=== PATIENT | female | born 1970 | race Caucasian/White ===

== ENCOUNTER 2024-04-22 13:07 | Inpatient (IN) | payer OTHER ==
[2024-04-22 16:41] LABS: Albumin 4.2 g/dL (3.4-5.0); Albumin/Globulin Ratio 1.6 (1.1-1.8); Anion Gap 11.7 mEq/L (5.0-15.0); Bilirubin Total 0.5 mg/dL (0.2-1.0); Globulin 2.6 g/dL (2.3-3.5); Magnesium 2.4 mg/dL (1.6-2.4); Potassium 3.7 mEq/L (3.5-5.1); Protein, Total 6.8 g/dL (6.4-8.2)
[2024-04-22] MEDS ORDERED: NA CHLORIDE 0.9% 1,000 ML ONE (16:42)
[2024-04-22 16:58] LABS: Absolute Eosinophils 0.2 K/uL (0-0.5); Absolute Lymphocytes (CBC) 2.4 K/uL (0.7-4.9); Absolute Neutrophil 8.8 K/uL (1.8-8.0); Basophils % 0.3 % (0-1.3); Eosinophils % 1.5 % (0-4.4); Hematocrit 38.9 % (36.0-45.0); Hemoglobin 12.1 g/dL (12.0-15.0); Lymphocytes % 19.1 % (15.3-44.8); MCH 26.6 pg (27.0-35.0); MCV 85.6 fL (80-100); MPV 9.4 fL (7.6-11.3); Monocytes % 7.8 % (3.3-12.3); Neutrophils % 71.3 % (41.7-73.7); Platelets 181 thou/uL (152-406); RBC Red Blood Cell Count 4.55 M/uL (3.86-4.86); Red Cell Distribution Width 18.2 % (12.1-15.2)
--- NOTE | 2024-04-22 17:38 | EDPHYS ---
Physician Documentation [facility] Name: Racheal Austin Age: 53 yrs Sex: Female : 1970 Arrival Date: 04/22/2024 Time: 13:07 Bed 13 Private MD: ED Physician Ernie Sargent HPI: 04/22 13:51 This 53 yrs old Female presents to ER via Ambulatory with complaints of possible [facility] lithium toxicity. 13:51 53-year-old female with a past medical history of bipolar disorder and diabetes jh7 presents to the ER for possible lithium toxicity. She reports tremors for the past couple of weeks, but her states that he has noticed a cognitive decline over this weekend. Patient reports she has experienced a small amount of diarrhea but that she feels fine. Reports that her PCP stated that she needed to stop taking her evening dose, but she denies doubling up on her meds, or any new medication.. 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 - Infectious Disease History:: Denies. - Social history:: Smoking status: Patient reports the use of cigarette tobacco products. ROS: 13:51 Constitutional: Per HPI 7 Exam: 13:51 Head/Face: Normocephalic, atraumatic. Eyes: Pupils equal round and reactive to light, 7 extra-ocular motions intact. Lids and lashes normal. Conjunctiva and sclera are non-icteric and not injected. Cornea within normal limits. Periorbital areas with no swelling, redness, or edema. Neck: Trachea midline, no thyromegaly or masses palpated, and no cervical lymphadenopathy. Supple, full range of motion without nuchal rigidity, or vertebral point tenderness. No Meningismus. Cardiovascular: Regular rate and rhythm with a normal S1 and S2. No gallops, murmurs, or rubs. Normal PMI, no JVD. No pulse deficits. Respiratory: Lungs have equal breath sounds bilaterally, clear to auscultation and percussion. No rales, rhonchi or wheezes noted. No increased work of breathing, no retractions or nasal flaring. Abdomen/GI: Soft, non-tender, with normal bowel sounds. No distension or tympany. No guarding or rebound. No evidence of tenderness throughout. Back: No spinal tenderness. No costovertebral tenderness. Full range of motion. 13:51 Skin: Warm, dry with normal turgor. Normal color with no rashes, no lesions, and no evidence of cellulitis. MS/ Extremity: Pulses equal, no cyanosis. Neurovascular intact. Full, normal range of motion. 13:51 Constitutional: The patient appears alert, awake, restless, 13:51 Neuro: Orientation: to person, place, time \\T\\ situation. Mentation: is normal, Motor: is normal, Sensation: is normal, 13:51 Psych: Behavior/mood is Agitated. Affect is animated, 17:58 Neuro: Orientation: Unable to remember her medications and frequently uses [facility] inappropriate words throughout discussion such as " I take formaldehyde for my medication", slurred speech, pt is agitated, Vital Signs: 13:51 BP 133 / 67; Pulse 73; Resp 18; Temp 98.2; Pulse Ox 91% ; Weight 95.25 kg; Height 5 ft. as6 5 in. ; Pain 0/10; 16:45 BP 131 / 71; Pulse 75; Resp 16; Pulse Ox 98% on R/A; nj1 18:01 BP 141 / 77; Pulse 73; Resp 16; Pulse Ox 99% ; nj1 18:50 BP 155 / 84; Pulse 77; Resp 16; Temp 98.2(O); Pulse Ox 99% on R/A; nj1 13:51 Body Mass Index 34.95 (95.25 kg, 165.1 cm) as6 13:51 Pain Scale: Adult as6 MDM: 13:35 Patient medically screened. 7 15:00 ED course: After receiving critical lithium level, the patient had left the room. I 7 called the patient who stated that she was tired of waiting so long. Strongly advised her to return to the ER for admission due to critical lab. The patient reports her will bring her back to the ER.. 17:35 Differential diagnosis: [place] toxicity, alcohol intoxication, tremors, accidental jh7 overdose. Data reviewed: vital signs, nurses notes, lab test result(s), EKG. Consideration of Admission/Observation Patient was admitted/placed on observation. Management of patient was discussed with the following: Hospitalist: Mago Ramos, nurse practitioner for Dr. Smith. I considered the following discharge prescriptions or medication management in the emergency department Medications were administered in the Emergency Department. See MAR. Historians other than the Patient: Spouse/Significant Other: alberto, . Care significantly affected by the following chronic conditions: Diabetes, Bipolar disorder. Counseling: I had a detailed discussion with the patient and/or guardian regarding the historical points, exam findings, and any diagnostic results supporting the discharge/admit diagnosis, the need for further work-up and treatment in the hospital. ED course: Mago spoke with Dr. Yin, nephrology, who advised admission to the ICU. Will rehydrate the patient and monitor her lithium level. If the patient's symptoms worsen, emergent dialysis may be indicated.. 04/22 13:51 Order name: [place]; Complete Time: 15:49 [facility] 04/22 15:48 Order name: CBC with Diff; Complete Time: 17:14 [facility] 04/22 15:48 Order name: CMP; Complete Time: 16:58 [facility] 04/22 15:49 Order name: Magnesium; Complete Time: 16:58 [facility] 04/22 16:28 Order name: UDS [facility] 04/22 16:28 Order name: ETOH Level; Complete Time: 17:28 [facility] 04/22 16:28 Order name: Tylenol Level [facility] 04/22 16:28 Order name: Salicylate; Complete Time: 17:28 [facility] 04/22 17:58 Order name: CBC with Automated Diff [facility] 04/22 17:58 Order name: T4 Free [facility] 04/22 17:58 Order name: Thyroid Stimulating Hormone [facility] 04/22 17:58 Order name: Basic Metabolic Panel [facility] 04/22 17:58 Order name: Basic Metabolic Panel [facility] 04/22 17:58 Order name: Basic Metabolic Panel [facility] 04/22 17:58 Order name: Lipid Profile [facility] 04/22 17:58 Order name: Lipid Profile [facility] 04/22 17:58 Order name: [place] [facility] 04/22 17:58 Order name: [place] [facility] 04/22 18:02 Order name: CBC with Automated Diff [facility] 04/22 18:02 Order name: CBC with Automated Diff [facility] 04/22 18:02 Order name: CBC with Automated Diff [facility] 04/22 18:02 Order name: CBC with Automated Diff [facility] 04/22 18:02 Order name: Comprehensive Metabolic Panel [facility] 04/22 18:02 Order name: Comprehensive Metabolic Panel [facility] 04/22 18:02 Order name: Comprehensive Metabolic Panel [facility] 04/22 18:02 Order name: Comprehensive Metabolic Panel [facility] 04/22 18:02 Order name: Magnesium [facility] 04/22 18:02 Order name: Magnesium EDMS 04/22 18:02 Order name: Magnesium EDMS 04/22 18:02 Order name: Magnesium [facility] 04/22 18:02 Order name: Phosphorus [facility] 04/22 18:02 Order name: Phosphorus EDMS 04/22 18:02 Order name: Phosphorus EDMS 04/22 18:02 Order name: Phosphorus EDMS 04/22 18:03 Order name: [place] EDMS 04/22 19:26 Order name: T4 Free [facility] 04/22 19:26 Order name: Thyroid Stimulating Hormone [facility] 04/22 17:58 Order name: CONS Physician Consult [facility] 04/22 16:28 Order name: EKG - Nurse/Tech; Complete Time: 17:25 jh7 EC:20 Rate is 76 beats/min. Rhythm is regular. QRS Cla[place] is Normal. AK interval is normal at jh7 180 msec. QRS interval is normal at 96 msec. QT interval is prolonged at 432 msec. No Q waves. T waves are Normal. No ST changes noted. Clinical impression: Normal sinus rhythm with prolonged QT. Administered Medications: 16:45 Drug: NS 0.9% IV 1000 ml IV at 1 bolus Per protocol; 1000 mL bolus Route: IV; Rate: 1 nj1 bolus; Site: right forearm; 18:00 Follow up: Response: No adverse reaction; IV Status: Completed infusion; IV Intake: nj1 1000ml 18:00 Drug: NS 0.9% IV 1000 ml IV at 1 bolus Per protocol; 1000 mL bolus Route: IV; Rate: 1 nj1 bolus; Site: right forearm; 18:00 Drug: NS 0.9% IV 1000 ml IV at 1 bolus Per protocol; 1000 mL bolus Route: IV; Rate: 1 nj1 bolus; Site: right forearm; Disposition Summary: 04/22/24 17:37 Hospitalization Ordered Notes: Hospitalization Status: Inpatient Admission [facility] Provider: Rima Sheikh [facility] Location: Intensive Care Unit [facility] Condition: Fair [facility] Problem: new [facility] Symptoms: have worsened [facility] Bed/Room Type: Standard [facility] Room Assignment: 3-(04/22/24 18:03) Diagnosis - [place] toxicity [facility] - Dehydration [facility] Forms: - Medication Reconciliation Form [facility] - SBAR form [facility] - Leadership Thank You Letter [facility] Signatures: Dispatcher [employer] EDMS Mago Ramos FNP-C ENTREPRENEURSHIP PROGRAM DIRECTOR-Maria Del Rosariow Paola Verduzco Ashby, RN RN as6 Greer Thomason FNP ENTREPRENEURSHIP PROGRAM DIRECTOR 7 Cayla Rodríguez, RN RN nj1 Corrections: (The following items were deleted from the chart) 17:59 13:51 Psych: Behavior/mood is Agitated. Affect is calm, [place] [id number] 18:01 17:58 Comprehensive Metabolic Panel ordered. EDMS EDMS 18:02 17:58 Magnesium ordered. EDMS EDMS 18:02 17:58 Phosphorus ordered. EDMS EDMS 18:03 17:37 [facility]
--- NOTE | 2024-04-22 17:38 | ER ---
Nurse's Notes [facility] Name: Racheal Austin Age: 53 yrs Sex: Female : 1970 Arrival Date: 04/22/2024 Time: 13:07 Bed 13 Private MD: Diagnosis: [place] toxicity;Dehydration Presentation: 04/22 13:51 Chief complaint: Patient states: pt states she needs her lithium levels checked. as6 Coronavirus screen: At this time, the client does not indicate any symptoms associated with coronavirus-19. Ebola Screen: No symptoms or risks identified at this time. Initial Sepsis Screen: Does the patient meet any 2 criteria? No. Patient's initial sepsis screen is negative. Does the patient have a suspected source of infection? No. Patient's initial sepsis screen is negative. Risk Assessment: Do you want to hurt yourself or someone else? Patient reports no desire to harm self or others. Onset of symptoms was April 22, 2024. 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 - Infectious Disease History:: Denies. - Social history:: Smoking status: Patient reports the use of cigarette tobacco products. Screenin:34 [facility] ED Fall Risk Assessment (Adult) History of falling in the last 3 months, nj1 including since admission No falls in past 3 months (0 pts) Confusion or Disorientation No (0 pts) Intoxicated or Sedated No (0 pts) Impaired Gait No (0 pts) Mobility Assist Device Used No (0 pt) Altered Elimination No (0 pt) Score/Fall Risk Level 0 - 2 = Low Risk Oriented to surroundings, Maintained a safe environment, Hourly rounding (assess needs \\T\\ fall precautionary measures) done. Abuse screen: Denies threats or abuse. Denies injuries from another. Nutritional screening: No deficits noted. Tuberculosis screening: No symptoms or risk factors identified. Assessment: 14:20 General: Appears in no apparent distress. comfortable, Behavior is calm, cooperative, nj1 appropriate for age. 14:20 Pain: Denies pain. Neuro: Level of Consciousness is awake, alert, obeys commands, nj1 Oriented to person, place, time, situation. Neuro: Reports Tremors, none noted at time of assessment.. Cardiovascular: Patient's skin is warm and dry. Respiratory: Airway is patent Respiratory effort is even, unlabored. GI: Reports diarrhea. 15:30 Reassessment: Not in room at this time. nj1 16:08 Reassessment: Pt to come back to ED per Greer Waller SURGICAL AIDE statement. Pt had left earlier [facility] without notice. Charge nurse aware. 16:40 Reassessment: Patient appears in no apparent distress at this time. Patient and/or nj1 family updated on plan of care and expected duration. Pain level reassessed. Patient is alert, oriented x 3, equal unlabored respirations, skin warm/dry/pink. Pt back in room. Patient and patients refused monitor on due to "beeping". This RN attempts education, do not want monitor on, this RN to come back and turn monitor on when getting vital signs. 16:40 Neuro: Level of Consciousness is awake, obeys commands, Drowsy. Oriented to person, nj1 place, situation. 18:01 Reassessment: Patient appears in no apparent distress at this time. Patient and/or nj1 family updated on plan of care and expected duration. Pain level reassessed. Patient is alert, oriented x 3, equal unlabored respirations, skin warm/dry/pink. Hospitalist in room with patient. 18:12 Reassessment: Unsuccessful attempt to call report at this time. Nurses unavailable, nj they will call after shift change for report. 18:50 Reassessment: Patient appears in no apparent distress at this time. Patient and/or nj1 family updated on plan of care and expected duration. Pain level reassessed. Patient is alert, oriented x 3, equal unlabored respirations, skin warm/dry/pink. 19:09 Reassessment: Patient appears in no apparent distress at this time. Patient and/or jb4 family updated on plan of care and expected duration. Pain level reassessed. Patient is alert, oriented x 3, equal unlabored respirations, skin warm/dry/pink. Vital Signs: 13:51 BP 133 / 67; Pulse 73; Resp 18; Temp 98.2; Pulse Ox 91% ; Weight 95.25 kg; Height 5 ft. as6 5 in. ; Pain 0/10; 16:45 BP 131 / 71; Pulse 75; Resp 16; Pulse Ox 98% on R/A; nj1 18:01 BP 141 / 77; Pulse 73; Resp 16; Pulse Ox 99% ; nj1 18:50 BP 155 / 84; Pulse 77; Resp 16; Temp 98.2(O); Pulse Ox 99% on R/A; nj1 13:51 Body Mass Index 34.95 (95.25 kg, 165.1 cm) as6 13:51 Pain Scale: Adult as6 ED Course: 13:16 Patient arrived in ED. ts1 13:35 [facility] Thomason FNP [facility]. jh7 13:35 Ernie Sargent MD is Attending Physician. jh7 13:52 Triage completed. as6 13:53 Arm band placed on. as6 14:20 Patient has correct armband on for positive identification. Bed in low position. Call nj1 light in reach. Adult w/ patient. 14:20 Provided Education on: call light, fall precautions. nj1 14:22 Initial lab(s) drawn, by in, sent to lab. nj1 14:29 Cayla Rodríguez, MICHOACANO is Primary Nurse. nj1 16:45 Inserted saline lock: 20 gauge in right forearm, using aseptic technique. Blood nj1 collected. 17:25 EKG done, by ED staff, reviewed by Greer SCHAEFER. 10 17:36 Rima Sheikh MD is Hospitalizing Provider. [facility] 19:12 Report given to Angel RÍOS. nj1 19:31 No provider procedures requiring assistance completed. Patient admitted, IV remains in nj1 place. Administered Medications: 16:45 Drug: NS 0.9% IV 1000 ml IV at 1 bolus Per protocol; 1000 mL bolus Route: IV; Rate: 1 nj1 bolus; Site: right forearm; 18:00 Follow up: Response: No adverse reaction; IV Status: Completed infusion; IV Intake: nj1 1000ml 18:00 Drug: NS 0.9% IV 1000 ml IV at 1 bolus Per protocol; 1000 mL bolus Route: IV; Rate: 1 nj1 bolus; Site: right forearm; 18:00 Drug: NS 0.9% IV 1000 ml IV at 1 bolus Per protocol; 1000 mL bolus Route: IV; Rate: 1 nj1 bolus; Site: right forearm; Medication: 19:33 VIS not applicable for this client. nj1 Intake: 18:00 IV: 1000ml; Total: 1000ml. ut1 Outcome: 17:37 Decision to Hospitalize by Provider. chris 19:32 Admitted to ICU accompanied by nurse, family with patient, room 3, Report called to miryam Barfiled RN 19:32 Condition: stable 19:32 Instructed on the need for admit, 19:34 Patient left the ED. [facility] Signatures: King Banks, RN RN jb4 Ellis Rojas, RN RN as6 Greer Thomason, EXPANSION JOINT BUILDER EXPANSION JOINT BUILDER 7 Cayla Rodríguez RN RN nj1 Vanesa Chapa, MIA PAS ts1 Sharmaine Moore, RN RN cm10 Corrections: (The following items were deleted from the chart) 16:58 16:57 BP 131 / 71; Pulse 75bpm; Resp 16bpm; Pulse Ox 98% RA; nj1 nj 18:38 16:40 Reassessment: Patient appears in no apparent distress at this time. Patient nj1 and/or family updated on plan of care and expected duration. Pain level reassessed. Patient is alert, oriented x 3, equal unlabored respirations, skin warm/dry/pink. Pt back in room [facility]
--- NOTE | 2024-04-22 17:47 | P.HP ---
Certification for Inpatient Patient admitted to: Inpatient With expected LOS: >2 Midnights Patient will require the following post-hospital care: None Practitioner: I am a practitioner with admitting privileges, knowledge of patient current condition, hospital course, and medical plan of care. Services: Services provided to patient in accordance with Admission requirements found in Title 42 Section 412.3 of the Code of Federal Regulations Patient History Date of Service: 04/22/24 Reason for admission: [place] toxicity Home medications list reviewed: Yes ([place] and [place]) Physical Examination - Studies Laboratory Data (last 24 hrs) 04/22/24 04/22/24 16:45 14:22 WBC 12.40 H Hgb 12.1 Hct 38.9 Plt Count 181 Sodium 131 L Potassium 3.7 BUN 34 H Creatinine 1.69 H Glucose 138 H Magnesium 2.4 Total Bilirubin 0.5 AST 18 ALT 25 Alkaline Phosphatase 169 H Assessment and Plan - Advance Directives Does patient have a Living Will: No Does patient have a Durable POA for Healthcare: No
[2024-04-22] MEDS ORDERED: NA CHLORIDE 0.9% 2,000 ML ONE (17:56)
[2024-04-22] MEDS ORDERED: VANCOMYCIN 1 GM/VIAL ONE (19:11)
[2024-04-22] MEDS ORDERED: NA CHLORIDE 0.9% 250 ML ONE (19:11)
[2024-04-22] MEDS ORDERED: MORPHINE 2 MG/ML SYR IV PRN (19:21)
[2024-04-22] MEDS ORDERED: ONDANSETRON 4 MG/2 ML VIAL IV PRN (19:21)
[2024-04-22] MEDS ORDERED: ALBUTEROL 2.5 MG/3 ML NEB SOL NEB PRN (19:21)
[2024-04-22] MEDS ORDERED: HYDRALAZINE HCL 20 MG/ML VIAL IV PRN (19:24)
[2024-04-22] MEDS ORDERED: ACETAMINOPHEN 325 MG TABLET PO PRN (19:24)
--- NOTE | 2024-04-22 19:31 | P.HP ---
Certification for Inpatient Patient admitted to: Observation With expected LOS: <2 Midnights Patient will require the following post-hospital care: None Practitioner: I am a practitioner with admitting privileges, knowledge of patient current condition, hospital course, and medical plan of care. Services: Services provided to patient in accordance with Admission requirements found in Title 42 Section 412.3 of the Code of Federal Regulations Patient History Date of Service: 04/22/24 Reason for admission: Weakness and tremulousness History of Present Illness: 53-year-old female with history of bipolar disorder on lithium since the last 10 years with no recent dose adjustment, history of hypertension, diabetes mellitus type 2 currently on metformin and Mounjaro, recurrent Mounjaro induced vomiting last episode was earlier today; presented to the hospital because of increasing weakness and new onset noted tremors with lethargy. Patient states she had a bout of diarrhea 1 week ago but has since resolved. She denies any fever or chills she denies any headache or dizziness. She states she has been having intermittent vomiting since started on Mounjaro. She states she has a significant weight loss of over 20 pounds. On arrival in the ED vital signs were stable, laboratory workup shows serum sodium of 131 with lithium level of greater than 3.0 potassium was 3.7 creatinine elevated at 1.69. Patient denies prior kidney injury. She denies any prior history of lithium toxicity. She denies any suicidal ideation. Initially on arrival in the ED patient has wanted to leave AMA but now more cooperative and conversant. She denies any other symptoms now. She is ready to do what ever needed to get her lithium level corrected. Allergies No Known Allergies Allergy (Unverified 04/22/24 18:39) - Past Medical/Surgical History -: Hypertension -: Diabetes mellitus -: Obesity -: Cholecystectomy - Family History Family History: Reviewed- Non-Contributory - Social History Smoking Status: Heavy Tobacco smoker (>10 cigarettes/day) Counseled patient to stop smoking for: more than 10 minutes Smoking therapy provided: Yes Patient receptive to therapy: Yes Alcohol use: No CD- Drugs: No Caffeine use: No Place of Residence: Home Review of Systems 10-point ROS is otherwise unremarkable General: Weakness Gastrointestinal: Nausea, Vomiting Neurological: Weakness Physical Examination - Physical Exam General: Alert, In no apparent distress, Oriented x3, Obese HEENT: Atraumatic, Normocephalic, PERRLA Neck: Supple, 2+ carotid pulse no bruit, JVD not distended Respiratory: Clear to auscultation bilaterally, Normal air movement Cardiovascular: No edema, Normal pulses, Regular rate/rhythm, Normal S1 S2 Gastrointestinal: Normal bowel sounds, Soft and benign, Non-distended, No ascites, No tenderness Musculoskeletal: No clubbing, No swelling Integumentary: No rashes, No significant lesion, No tenderness/swelling Neurological: Normal gait, Normal strength at 5/5 x4 extr, Sensation intact, Cranial nerves 3-12 intact - Studies Laboratory Data (last 24 hrs) 04/22/24 04/22/24 16:45 14:22 WBC 12.40 H Hgb 12.1 Hct 38.9 Plt Count 181 Sodium 131 L Potassium 3.7 BUN 34 H Creatinine 1.69 H Glucose 138 H Magnesium 2.4 Total Bilirubin 0.5 AST 18 ALT 25 Alkaline Phosphatase 169 H Assessment and Plan - Plan Impression [place] toxicity Acute kidney injurydue to prerenal from dehydration Dehydrationdue to Mounjaro induced weight loss and vomiting History of bipolar disorder Diabetes mellitus Hypercalcemiadue to dehydration Plan Will admit patient to observation Anshul Little elevated level noted, option of initiating dialysis now versus aggressive IV fluid discussed with patient she was initially hesitant but prompted by spouse to accept dialysis. However dialysis unable to be obtained due to general logistic reasons now. Continue aggressive IV fluid3 L normal saline bolus already given, start NS with KCl at 200 cc/h for the next 4 hours then repeat lithium level If the persistently 2 level above 3.0 we will progress with dialysis catheter placement and initiating dialysis tonight Hold metformin and Mounjaro for now Follow creatinine trend Replace potassium as needed Follow magnesium Insulin sliding scale with Accu-Cheks Follow repeat calcium level expected to improve with IV fluid Lovenox for DVT prophylaxis Full code Total time spent in evaluation of patient and discussion and discussion with staff greater than 75-minute - Advance Directives Does patient have a Living Will: No Does patient have a Durable POA for Healthcare: No Time Spent Managing Pts Care (In Minutes): 75
[2024-04-22] MEDS ORDERED: D5 0.9 NS 1,000 ML IV SCH (20:00)
[2024-04-22 20:07] VITALS: BMI 34.6
[2024-04-22] MEDS: NS KCL 20MEQ 20 MEQ/1,000 ML BAG IV SCH (20:08)
[2024-04-22] MEDS: FUROSEMIDE 40 MG/4 ML VIAL IV ONE (20:08)
[2024-04-22] MEDS: FAMOTIDINE 20 MG TAB PO SCH (20:08)
[2024-04-22 22:05] LABS: Barbiturates NEGATIVE (NEGATIVE); Benzodiazepines NEGATIVE (NEGATIVE); Cocaine NEGATIVE (NEGATIVE); METHAMPHETAM NEGATIVE (NEGATIVE); Methadone NEGATIVE (NEGATIVE); Opiates NEGATIVE (NEGATIVE); Phencyclidine NEGATIVE (NEGATIVE); THC Cannibis NEGATIVE (NEGATIVE)
[2024-04-22 23:34] LABS: Anion Gap 7.9 mEq/L (5.0-15.0); Potassium 3.9 mEq/L (3.5-5.1)
[2024-04-23] MEDS: INSULIN REGULAR (HUMAN) 100 UNIT/ML SQ SCH
[2024-04-23] MEDS ORDERED: clonazePAM 0.5 MG TAB PO PRN (00:30)
[2024-04-23 05:08] LABS: Absolute Eosinophils 0.1 K/uL (0-0.5); Absolute Lymphocytes (CBC) 1.5 K/uL (0.7-4.9); Absolute Monocytes 0.6 K/uL (0.1-1.3); Absolute Neutrophil 6.3 K/uL (1.8-8.0); Basophils % 0.3 % (0-1.3); Eosinophils % 1.4 % (0-4.4); Hematocrit 34.4 % (36.0-45.0); Hemoglobin 11.4 g/dL (12.0-15.0); Lymphocytes % 17.7 % (15.3-44.8); MCH 28.2 pg (27.0-35.0); MCV 85.4 fL (80-100); Neutrophils % 73.6 % (41.7-73.7); Nucleated Red Blood Cells % 0.2 % (0-0); Platelets 142 thou/uL (152-406); RBC Red Blood Cell Count 4.03 M/uL (3.86-4.86); Red Cell Distribution Width 17.7 % (12.1-15.2)
[2024-04-23 05:21] LABS: Albumin 3.6 g/dL (3.4-5.0); Albumin/Globulin Ratio 1.3 (1.1-1.8); Anion Gap 6.2 mEq/L (5.0-15.0); Bilirubin Total 0.4 mg/dL (0.2-1.0); Globulin 2.7 g/dL (2.3-3.5); Potassium 4.2 mEq/L (3.5-5.1); Protein, Total 6.3 g/dL (6.4-8.2)
[2024-04-23] MEDS: ASPIRIN EC 81 MG TAB PO SCH (08:15)
[2024-04-23] MEDS: ENOXAPARIN 40 MG/0.4 ML SQ SCH (08:16)
[2024-04-23] MEDS: NICOTINE 21 MG/PAT TD SCH (08:16)
[2024-04-23] MEDS ORDERED: ENOXAPARIN 40 MG/0.4 ML SQ SCH (09:00)
--- NOTE | 2024-04-23 10:04 | P.CNS ---
Date of Consult: 04/23/24 Reason for Consult: Yoe Toxicity Requesting Physician: Ace Jesus Chief Complaint: Weakness and tremulousness History of Present Illness: 53-year-old female with history of bipolar disorder on lithium since the last 10 years with no recent dose adjustment, history of hypertension, diabetes mellitus type 2 currently on metformin and Mounjaro, recurrent Mounjaro induced vomiting last episode was earlier today; presented to the hospital because of increasing weakness and new onset noted tremors with lethargy. Patient states she had a bout of diarrhea 1 week ago but has since resolved. She denies any fever or chills she denies any headache or dizziness. She states she has been having intermittent vomiting since started on Mounjaro. She states she has a significant weight loss of over 20 pounds. On arrival in the ED vital signs were stable, laboratory workup shows serum sodium of 131 with lithium level of greater than 3.0 potassium was 3.7 creatinine elevated at 1.69. Patient denies prior kidney injury. She denies any prior history of lithium toxicity. She denies any suicidal ideation. Initially on arrival in the ED patient has wanted to leave AMA but now more cooperative and conversant. She denies any other symptoms now. She is ready to do what ever needed to get her lithium level corrected. [id number] 13:51 This 53 yrs old Female presents to ER via Ambulatory with complaints of possible jh7 lithium toxicity. 13:51 53-year-old female with a past medical history of bipolar disorder and diabetes jh7 presents to the ER for possible lithium toxicity. She reports tremors for the past couple of weeks, but her states that he has noticed a cognitive decline over this weekend. Patient reports she has experienced a small amount of diarrhea but that she feels fine. Reports that her PCP stated that she needed to stop taking her evening dose, but she denies doubling up on her meds, or any new medication.. +BM Allergies No Known Allergies Allergy (Unverified 04/22/24 18:39) Home medications list reviewed: Yes Home Medications: Yoe Carbonate [Lithotabs 300MG] 900 mg PO BID 04/22/24 Metformin HCl 1,000 mg PO BID 04/22/24 Mounjaro 75 units SQ SEECOM 04/22/24 clonazePAM [Clonazepam] 0.5 mg PO DAILY PRN 04/22/24 - Past Medical/Surgical History Diabetic: Yes -: HTN -: DM II -: Obesity -: Cholecystectomy - Social History Alcohol use: No CD- Drugs: No Caffeine use: Yes Place of Residence: Home Review of Systems 10-point ROS is otherwise unremarkable General: Malaise Gastrointestinal: Diarrhea Physical Examination Temp Pulse Resp BP Pulse Ox 97.9 F 74 18 146/86 H 97 04/23/24 08:00 04/23/24 08:00 04/23/24 08:00 04/23/24 08:00 04/23/24 08:00 General: Oriented x3 HEENT: Atraumatic Neck: Supple Respiratory: Normal air movement Cardiovascular: No edema, Regular rate/rhythm Gastrointestinal: Soft and benign, Non-distended Musculoskeletal: No clubbing, No contractures Integumentary: No rashes, No cyanosis Neurological: Normal speech Laboratory Data (last 24 hrs) 04/22/24 04/22/24 16:45 14:22 WBC 12.40 H Hgb 12.1 Hct 38.9 Plt Count 181 Sodium 131 L Potassium 3.7 BUN 34 H Creatinine 1.69 H Glucose 138 H Magnesium 2.4 Total Bilirubin 0.5 AST 18 ALT 25 Alkaline Phosphatase 169 H Conclusions/Impression: Yoe Toxicity -No need for acute HD at this time -Aggressive IVF with NS -Lasix and Amiloride as ordered -Monitor level Hyponatremia -Continue IVF with NS -Lasix as ordered Hypercalcemia -Continue IVF HTN -Hydralazine prn DM II -Hold Mounjaro and Metformin -RISS prn Anemia in chronic illness -Monitor H&H Case reviewed with hospitalist team Thank you kindly for the consultation
[2024-04-23] MEDS: FUROSEMIDE 20 MG/ 2ML VIAL IV ONE (11:36)
[2024-04-23] MEDS: NA CHLORIDE 0.9% 1,000 ML IV SCH (11:36)
--- NOTE | 2024-04-23 12:03 | EKG ---
Test Date: 2024-04-22 Test Time: 17:20:44 Elevated Motorman: LUDMILA MEASUREMENT RESULTS: Intervals: Rate: 76 [place]: 180 QRSD: 96 QT: 432 QTc: 486 [place]: P: 70 [place]: 180 QRS: 89 T: 56 INTERPRETIVE STATEMENTS: Normal sinus rhythm Prolonged QT Abnormal ECG No previous ECG available for comparison Electronically Signed On 04-23-24 12:02:45 CDT by Luis Smalls
[2024-04-23] MEDS: AMILORIDE HCL 5 MG TABLET PO SCH (12:15)
[2024-04-23] MEDS ORDERED: ALBUTEROL 2.5 MG/3 ML NEB SOL NEB PRN (14:54)
[2024-04-23] MEDS ORDERED: MORPHINE 4 MG/ML SYR IV PRN (15:02)
[2024-04-24 11:46] VITALS: O2SAT 96
[2024-04-24 12:09] VITALS: BP 149/75; TEMP 97.4
== END 2024-04-24 15:18 | disposition home or self-care (01) | DRG 918 ==
LOC: ER 13:07 → ERHOLD 17:47 → INTOOBSV 17:47 → 3RD-ICU 18:13 → OBSVTOIN 04-23 11:51
PROVIDERS: ADMIT Internal Medicine; ATTEND Hospitalist
DX: T43.592A Poisoning by other antipsychotics and neuroleptics, intentional self-harm, initial encounter (principal); N17.9 Acute kidney failure, unspecified; E87.1 Hypo-osmolality and hyponatremia; E11.9 Type 2 diabetes mellitus without complications; I10 Essential (primary) hypertension; F31.9 Bipolar disorder, unspecified; E83.52 Hypercalcemia; E86.0 Dehydration; E66.9 Obesity, unspecified; D63.8 Anemia in other chronic diseases classified elsewhere; F17.210 Nicotine dependence, cigarettes, uncomplicated; Z68.34 Body mass index [BMI] 34.0-34.9, adult; Z90.49 Acquired absence of other specified parts of digestive tract; Z90.710 Acquired absence of both cervix and uterus
CPT/HCPCS: 36415; 80048; 80053; 80143; 80178; 80179; 80307; 82077; 82947; 83735; 84439; 84443; 85025; 93005; 96360; 99285; G0378; J1650; J1940; J3480; J7030; J7050